=== PATIENT | female | born 1995 | race Caucasian/White ===

== ENCOUNTER 2021-06-12 15:12 | Emergency (ER) | payer OTHER, MEDICAID ==
[~2021-06-12] VITALS: Ht 162.6 cm; Wt 63.5 kg
[2021-06-12] MEDS ORDERED: CRUTCHES MISCELL ×2 (16:37)
[2021-06-12] MEDS ORDERED: TRINATE TABLET1 EACH PO (16:37)
[2021-06-12 17:16] VITALS: BP 122/68
== END 2021-06-12 17:16 | disposition home or self-care (01) ==
LOC: M.ERS 15:12
DX: O9A.211 Injury, poisoning and certain other consequences of external causes complicating pregnancy, first trimester (principal); O26.891 Other specified pregnancy related conditions, first trimester; Z3A.00 Weeks of gestation of pregnancy not specified; S82.424A Nondisplaced transverse fracture of shaft of right fibula, initial encounter for closed fracture; Z91.040 Latex allergy status; W01.0XXA Fall on same level from slipping, tripping and stumbling without subsequent striking against object, initial encounter; Y93.89 Activity, other specified; Y92.89 Other specified places as the place of occurrence of the external cause; Y99.8 Other external cause status